=== PATIENT | male | born 1995 ===

== ENCOUNTER 2016-07-16 14:40 | Emergency (ER) | payer OTHER ==
[2016-07-16 15:15] VITALS: BP 119/53
[2016-07-16] MEDS ORDERED: cefTRIAXone VIAL(*) 250 MG VIAL IM ONE (15:43)
[2016-07-16] MEDS ORDERED: Azithromycin TAB* 250 MG PO ONE (15:44)
[2016-07-16] MEDS ORDERED: Lidocaine 1% MPF* 2 ML VIAL ONE (15:51)
--- NOTE | 2016-07-16 15:51 | UC ---
Complaint Male HPI - HPI Summary HPI Summary: 20 yo male with a three day hx of dysuria/urethral discharge and burning pain at the tip of his penis Has also had mild earache and sorethroat x 2 weeks now with cough/runny nose fever and chills x 1 day - History of Current Complaint Chief Complaint: UCGeneralIllness Stated Complaint: EARS SORE THROAT URINARY COMPLAINT Time Seen by Provider: 07/16/16 15:35 Hx Obtained From: Patient Onset/Duration: Sudden Onset, Lasting Days Timing: Intermittent, Lasting Seconds Severity Initially: Moderate Severity Currently: Mild Pain Intensity: 2 Pain Scale Used: 0-10 Numeric Location: Penis Character: Burning Aggravating Factor(s): Voiding Alleviating Factor(s): Nothing Associated Signs And Symptoms: Positive: Back Pain - myalgias including back pain today, Fever - today, Dysuria, Nausea, Penile Discharge. Negative: Diaphoresis, Hematuria, Constipation, Blood in Stool, Rectal Pain, Vomiting(# Of Episodes =), Penile Swelling - Allergies/Home Medications Allergies/Adverse Reactions: Allergies Allergy/AdvReac Type Severity Reaction Status Date / Time No Known Allergies Allergy Verified 07/16/16 15:15 PMH/Surg Hx/FS Hx/Imm Hx Previously Healthy: Yes - Surgical History Surgical History: None - Family History Known Family History: Positive: Hypertension - Social History Alcohol Use: Weekly Substance Use Type: None Smoking Status (MU): Never Smoked Tobacco Review of Systems Constitutional: Fever, Chills Skin: Negative Eyes: Negative ENT: Sore Throat, Ear Ache, Nasal Discharge Respiratory: Cough Cardiovascular: Negative Gastrointestinal: Negative Genitourinary: Dysuria Motor: Negative Neurovascular: Negative Musculoskeletal: Myalgia Neurological: Negative Psychological: Negative All Other Systems Reviewed And Are Negative: Yes Physical Exam Triage Information Reviewed: Yes Appearance: Well-Appearing, No Pain Distress, Well-Nourished Vital Signs: Initial Vital Signs Temp 100.9 F 07/16/16 15:09 Pulse 93 07/16/16 15:09 Resp 16 07/16/16 15:09 BP 119/53 07/16/16 15:09 Pulse Ox 98 07/16/16 15:09 Vital Signs Reviewed: Yes Eyes: Positive: Conjunctiva Clear ENT: Positive: Hearing grossly normal, Pharynx normal, Nasal drainage, TM bulging, Other: - bilat max sinus tenderness. Negative: Nasal congestion, TMs normal, TM dull, TM red, Tonsillar swelling, Tonsillar exudate, Trismus, Muffled /hoarse voice Dental: Negative: Gross Decay/Caries @, Dental Fracture @ Neck: Positive: Supple, Nontender Respiratory: Positive: Lungs clear, Normal breath sounds, No respiratory distress, No accessory muscle use Cardiovascular: Positive: RRR, No Murmur Abdomen Description: Positive: Nontender, No Organomegaly. Negative: CVA Tenderness (R), CVA Tenderness (L), Distended, Guarding Bowel Sounds: Positive: Present Musculoskeletal: Positive: ROM Intact, No Edema Neurological: Positive: Alert Psychological Exam: Normal Skin Exam: Normal Complaint Male Course/Dx - Differential Dx/Diagnosis Provider Diagnoses: urethritis. sinusitis Discharge - Discharge Plan Condition: Stable Disposition: HOME Prescriptions: DOXYcycline CAP(*) [DOXYcycline 100MG CAP(*)] 100 mg PO BID #[id number] cap Patient Education Materials: Nonspecific Urethritis in Men (ED), Sinusitis (ED) Additional Instructions: recheck in 4 days if not better
== END 2016-07-16 16:42 | disposition home or self-care (01) ==
LOC: UCCORT 14:40
DX: N34.2 Other urethritis (principal); J32.9 Chronic sinusitis, unspecified; Z11.3 Encounter for screening for infections with a predominantly sexual mode of transmission; Z11.4 Encounter for screening for human immunodeficiency virus [HIV]
CPT/HCPCS: 36415; 81003; 86703; 87086; 87491; 87502; 87591; 96372; 99202; A9270-GY; G0463; J0696